=== PATIENT | female | born 1935 | race Caucasian/White ===

== ENCOUNTER 2020-10-15 07:05 | Emergency (ER) | payer MEDICARE ==
[~2020-10-15] VITALS: Ht 167.6 cm; Wt 71.7 kg
[~2020-10-15 07:05] MED LIST: AMOX50SU PO; CODACEE120 PO; CONEST.3 PO; DILT120; LOSA25; METO50ER; NAPR220 PO; OLME20 PO; OMEP20ER PO; VERAPAMIL ER120 MG; WARF3 PO; WARF4
[2020-10-15] MEDS ORDERED: NEBI5 PO (07:42)
[2020-10-15] MEDS ORDERED: LISI5 PO (07:43)
[2020-10-15 07:46] LABS: Source, Urine Catheter
[2020-10-15 08:02] LABS: BASOPHILS ABSOLUTE AUTO 0.02 K/mm3 (0.00-0.23); BASOPHILS PERCENT AUTO 0 % (0-2); EOSINOPHILS ABSOLUTE AUTO 0.03 K/mm3 (0.00-0.68); EOSINOPHILS PERCENT AUTO 1 % (0-6); Hematocrit 36.4 % (33.0-51.0); Hemoglobin 11.9 g/dL (11.5-16.0); IMMATURE GRAN ABSOLUTE AUTO 0.01 K/mm3 (0.00-0.10); IMMATURE GRAN PERCENT AUTO 0 % (0-1); LYMPHOCYTES PERCENT AUTO 19 % (21-46); MONOCYTES ABSOLUTE AUTO 0.63 K/mm3 (0.16-1.47); MONOCYTES PERCENT AUTO 11 % (4-13); Mean Corpuscular HGB 30.6 pg (26.0-34.0); Mean Corpuscular HGB Conc 32.7 g/dL (31.5-36.5); Mean Corpuscular Volume 94 fL (80-100); Mean Platelet Volume 11.2 fL (9.1-12.4); NEUTROPHILS ABSOLUTE AUTO 4.06 K/mm3 (1.96-9.15); NEUTROPHILS PERCENT AUTO 69 % (41-73); Platelet Count 109 K/mm3 (150-400); RDW Coefficient Variation 14.6 % (11.7-14.2); RDW Standard Deviation 50.8 fL (35.1-46.3); Red Blood Cell Count 3.89 M/mm3 (3.80-5.20); White Blood Cell Count 5.85 K/mm3 (4.00-11.30)
[2020-10-15 08:12] LABS: Appearance, Urine Cloudy (Clear); Blood, Urine 5+ (Neg); Color, Urine Red (P-Yellow); Glucose Qualitative, Urine Neg (Neg); Ketones, Urine 1+ (Neg); Leukocyte Esterase, Urine 1+ (Neg); Nitrite, Urine Neg (Neg); Protein, Urine 4+ (Neg); Urobilinogen, Urine NORM (Normal); pH, Urine 6.5 (5.0-8.0)
[2020-10-15 08:16] LABS: Alanine Aminotransfer (ALT/SGP 27 U/L (12-78); Albumin, Blood 3.6 g/dL (3.4-5.0); Albumin/Globulin Ratio 1.1 (0.8-1.8); Alk Phos 124 U/L (50-136); Anion Gap 7 mmol/L (6-16); Aspartate Aminotrans (AST/SGOT 27 U/L (12-37); Bilirubin, Total 1.4 mg/dL (0.1-1.0); Blood Urea Nitrogen 15 mg/dL (8-24); Bun/Creatinine Ratio 18.8 (12.0-20.0); CO2, Blood 24 mmol/L (21-32); Calcium, Blood 8.7 mg/dL (8.5-10.1); Chloride, Blood 109 mmol/L (98-108); Globulin, Blood 3.2 g/dL (2.2-4.0); Glomerular Filtration Rate >60 (60-); Glucose, Blood 128 mg/dL (70-99); Potassium, Blood 3.8 mmol/L (3.5-5.5); Sodium, Blood 140 mmol/L (136-145); Total Protein, Blood 6.8 g/dL (6.4-8.2)
[2020-10-15 08:28] LABS: Bilirubin, Urine 1+ (Neg)
[2020-10-15 08:30] LABS: Red Blood Cells, Urine TNTC /hpf (0-2)
[2020-10-15 08:32] LABS: Bacteria Mod /hpf; Squamous Epithelial Cells Few /hpf (Few)
[2020-10-15 08:33] LABS: Hyaline Casts 0-2 /lpf (0-2)
[2020-10-15 08:37] LABS: Prothrombin Time Results 56.7 Sec (9.7-11.5)
[2020-10-15 08:44] LABS: International Normalized Ratio 5.8
== END 2020-10-15 11:35 | disposition home or self-care (01) ==
LOC: ER 07:05
PROVIDERS: Emergency Medicine; Family Medicine
DX: R25.2 Cramp and spasm (principal); R31.9 Hematuria, unspecified; R79.1 Abnormal coagulation profile
CPT/HCPCS: 36415; 51798; 80053; 81001; 85025; 85610; 87077; 87086; 87186; 96374; 96375; 99283-25; J2405; J3010; P9612

== ENCOUNTER → 2020-10-21 | Outpatient (CLI) | payer MEDICARE ==
[~2020-10-21] MED LIST changes: +LISI5 PO; +NEBI5 PO
[2020-10-21 16:20] LABS: Appearance, Urine Cloudy (Clear); Blood, Urine 2+ (Neg); Color, Urine Amber (P-Yellow); Glucose Qualitative, Urine Neg (Neg); Ketones, Urine Neg (Neg); Leukocyte Esterase, Urine 2+ (Neg); Nitrite, Urine Pos (Neg); Protein, Urine 2+ (Neg); Specific Gravity, Urine 1.025 (1.003-1.022); Urobilinogen, Urine 1+ (Normal)
[2020-10-21 16:44] LABS: Bilirubin, Urine 1+ (Neg)
[2020-10-21 16:47] LABS: Bacteria Many /hpf; Squamous Epithelial Cells Many /hpf (Few); White Blood Cells, Urine 25-50 /hpf (0-5)
== END ==
LOC: LAB 09:30 → LAB SHORT 09:30
PROVIDERS: Physician Assistant Medical
DX: Z79.01 Long term (current) use of anticoagulants (principal); Z51.81 Encounter for therapeutic drug level monitoring
CPT/HCPCS: 81001; 87086

== ENCOUNTER → 2023-11-25 | Outpatient (CLI) | payer MEDICARE ==
[~2023-11-25] MED LIST changes: +COREG25 MG PO; +HYDCHL25 PO
== END | disposition home or self-care (01) ==
LOC: LAB SHORT 10:37 → LAB 10:37
DX: L57.0 Actinic keratosis (principal); L82.0 Inflamed seborrheic keratosis; L81.4 Other melanin hyperpigmentation; D48.5 Neoplasm of uncertain behavior of skin
CPT/HCPCS: 88305

== ENCOUNTER → 2024-12-09 | Outpatient (CLI) | payer MEDICARE | LOC: LAB 12:15 → LAB SHORT 12:15 | DX: R82.998 Other abnormal findings in urine (principal) | CPT/HCPCS: 87086 ==